=== PATIENT | male | born 1960 | race Caucasian/White ===

== ENCOUNTER → 2016-11-06 | Outpatient (CLI) | payer MEDICARE, OTHER ==
--- NOTE | 2016-11-06 17:06 | RADRPT ---
PROCEDURE: CT Abdomen without contrast. CLINICAL INDICATION: Abdomen pain. TECHNIQUE: CT scan of the abdomen from the lung bases to the iliac crests without intravenous cont rast was performed. Helical axial sections were obtained from the lung bases to the upper pelvis. C oronal and sagittal reformatted images were obtained from the axial source images. Images were revie wed on a high-resolution PACS workstation. Total exam DLP is 517.22 mGy-cm. CTDIvol is 12.73 mGy. One or more of the following dose reduction techniques were used: Automated exposure control, adjus tment of the mA and/or kV according to patient size, use of iterative reconstruction technique. COMPARISON: None. FINDINGS: The lung bases are normal. There is no pleural effusion. The liver is normal in size and attenuation. There is no focal hepatic lesion. The gallbladder and bile ducts are normal. The spleen is normal in size. There is no focal splenic lesion. Both adrenals are normal with no enlargement or mass. The pancreas is unremarkable with no mass or evidence of pancreatitis. There is no renal calculus. There is no proximal ureteral calculus. There is no renal mass or hydr onephrosis. The abdominal aorta is not dilated. There is calcification in the aorta consistent with atheroscler osis. There is no retroperitoneal lymphadenopathy or mass. The bowel and mesentery are normal. The appendix is well seen and appears normal. There is no free fluid or free gas. There are mild degenerative changes of the spine. There is no fracture or lytic lesion. IMPRESSION: 1. No renal calculus or proximal ureteral calculus. 2. Atherosclerosis. 3. Mild degenerative changes of the spine. 4. Otherwise unremarkable study. RPTAT: QQ .Hemant Cordoba MD, MD Date Time Electronically viewed and signed by .Hemant Cordoba MD, MD on 11/06/2016 17:06 .R/
== END | disposition home or self-care (01) ==
LOC: C/S 11:54
PROVIDERS: ATTEND Internal Medicine
DX: R10.9 Unspecified abdominal pain (principal); N23 Unspecified renal colic
CPT/HCPCS: 74150